=== PATIENT | male | born 2005 | race Caucasian/White ===

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

== ENCOUNTER 2023-12-16 00:15 | Emergency (ER) | payer OTHER, SELFPAY ==
[2023-12-16 00:24] VITALS: BP 134/83; PULSE 74; RESP 16; TEMP 37.4; O2SAT 98
[2023-12-16 00:29] VITALS: BP 134/83; O2SAT 97
--- NOTE | 2023-12-16 00:42 | XRR_ITS ---
PROCEDURE INFORMATION: Exam: XR Right Wrist Exam date and time: 12/16/2023 1:04 AM Age: 18 years old Clinical indication: Injury or trauma; Other: Lifting; Work related; Patient HX: Patient picked up a box at work and now has pain lateral carpal area; Additional info: Pain/edema TECHNIQUE: Imaging protocol: Radiologic exam of the right wrist. Views: 3 or more views. COMPARISON: No relevant prior studies available. FINDINGS: Bones/joints: No acute fracture or dislocation identified. Incidental 6 mm cyst within the scaphoid bone. Soft tissues: Normal. XR/XR wrist RT min 3V* [id number] IMPRESSION: 1. No acute fracture or dislocation identified. 2. Incidental 6 mm cyst within the scaphoid bone. Consider simple bone cyst versus intraosseous ganglion cyst.
[2023-12-16] MEDS: ibuprofen 800 mg tablet PO (01:02)
--- NOTE | 2023-12-16 01:28 | W.ED.EXTPRO ---
HPI - Extremity Problem General: Chief complaint: Extremity Problem,Nontraumatic Stated complaint: Rt Wrist Swollen and Pain Time Seen by Provider: 12/16/23 00:24 History of Present Illness: 18-year-old male presents emergency department complaints of right wrist pain after lifting a heavy box today. He states he did feel a pop in his wrist and states he has had pain and swelling since that time. He states he does have a previous wrist injury many years ago but has been doing well since that time. He states that his current pain is a 10 out of 10 and worse with movement. He denies numbness or tingling to the extremity at present but does state that when he initially injured his wrist after lifting a heavy box he felt like his fifth and fourth digit had some tingling and numbness.. Review of Systems General: Reports: 10 or more systems reviewed and unremarkable except in HPI and below Musc: Reports: extremity pain, extremity swelling and joint pain Physical Exam Narrative: EXAM NARRATIVE: Constitutional: the patient appears well nourished and of normal development. Vital signs as documented. No acute distress at present. Alert and oriented-to person, place, time and situation. Head, eyes, ears, nose, mouth, throat: Normocephalic, atraumatic. Pupils-equal, round, reactive to light. No scleral icterus. Normal-appearing external ears. Normal appearing nasal turbinates, no drainage. No obvious oral lesions, posterior oropharynx without erythema or exudates. Neck: Supple, trachea is midline, no lymphadenopathy, no jugular venous distension, thyromegaly, or carotid bruits. Carotid upstrokes are brisk bilaterally. Lungs: clear to auscultation to all lung gomez. Symmetrical rise and fall of chest, no obvious signs of increased work of breathing at present. Cardiac: Regular rate and rhythm, positive S1, S2. No murmurs, rubs or gallops that I can appreciate Abdomen: Soft, non-tender to palpation, normal active bowel sounds to all quadrants. No palpable masses, no organomegaly and abdominal bruits. Extremities: 2+ pulses in the upper extremities that are equal bilaterally, 2+ pulses in the lower extremities that are equal bilaterally. Mild swelling to the right wrist, he is tender to palpation to the right lateral aspect of the radius. He does have slight tenderness to the anatomical snuffbox on the right. Moves all extremities well, sensation to all extremities are noted. Skin: Warm, dry, intact. Course ED course: I reviewed the radiographic examination and determined the need for fracture stabilization via splint. A right Velcro wrist splint was utilized. The splint was ordered and placed by the nursing staff, under the direct supervision of myself (ER Physician. The patient's neurovascular status was evaluated and was intact before and after the application of the splint. Capillary refill was less than 3 seconds before and after the application. The patient was splinted and the most appropriate anatomical and functional position at that time. Anticipatory guidance, return precautions and red flag precautions were provided to the patient and support person. The patient/support person was advised to contact the patient's primary care provider or Orthopedic provider to make a follow-up appointment for additional evaluation and treatment within the next 3-5 days. Reevaluation(s): Reevaluation #1: Patient was provided p.o. ibuprofen and states improved control of his pain. I did advise him of the radiographic findings and concern for fracture of the distal radius and advised him to follow-up with his primary care or orthopedics for additional evaluation treatment and care. I advised him that we provided him a wrist splint and that he should wear the supportive device until evaluated by the specialty physician. Time: 01:31 Vital Signs: Vital signs: Vital Signs Temperature 99.3 F 12/16/23 00:24 Pulse Rate 74 12/16/23 00:24 Respiratory Rate 16 12/16/23 00:24 Blood Pressure 134/83 12/16/23 00:29 Pulse Oximetry 97 12/16/23 00:29 Oxygen Delivery Me thod Room Air 12/16/23 00:29 MDM - Extremity (Nontraumatic) Medical Decision Making Physical exam completed document I will obtain a x-ray of the right wrist and provide the patient with ibuprofen. After review of the x-ray I am concerned regarding a nondisplaced fracture of the right wrist as there does appear to be periosteal disruption on the lateral aspect. I did provide a wrist splint for the patient as well as written prescription for pain medication and recommended primary care/orthopedic physician follow-up. Medical Records I reviewed the patient's medical records. Lab Data I reviewed the patient's lab results. Radiology Impressions Wrist X-Ray 12/16/23 00:42 IMPRESSION: 1. No acute fracture or dislocation identified. 2. Incidental 6 mm cyst within the scaphoid bone. Consider simple bone cyst versus intraosseous ganglion cyst. All radiology interpretation(s) finalized by discharge Discharge Plan Discharge Patient Disposition: Home Clinical Impression: Acute pain of right wrist Fracture of right distal radius Qualifiers: Encounter type: initial encounter Fracture type: closed Fracture morphology: unspecified fracture morphology Qualified Code(s): S52.501A - Unspecified fracture of the lower end of right radius, initial encounter for closed fracture Condition: Stable Prescriptions: New hydrocodone-acetaminophen 5-325 mg tablet 1 tab PO Q8H PRN (Reason: pain) Qty: 6 0RF naproxen 500 mg tablet 500 mg PO Q12H PRN (Reason: pain) Qty: 20 0RF Discharge Orders: Discharge ED (Routine); Ordered 12/16/23 Ordered By: Bonilla Stephenson Discharge Diet: Usual diet Discharge Activity: Resume usual activity Patient Instructions: Opioid Safety, Pain Management Activity Restrictions/Additional Instructions: Activity Restrictions/Additional Instructions: Thank you for choosing [facility] for your healthcare needs today. Please realize that you were seen in the Emergency Department and that we are providing you with an emergency medical screening exam and this may not be a complete and all inclusive of all the testing and or medical work-up that you may need to determine your ailment or severity of your illness. It is very important that you follow-up as instructed with your Primary care provider or Specialist for additional evaluation and to discuss your medical treatment plan. Stand Alone Forms: Work/School Release Coding Level of Care Code ED Inspector [place] for Nabil Bhandari
== END 2023-12-16 01:52 | disposition home or self-care (01) ==
PROVIDERS: Emergency Provider Internal Medicine
DX: S52.501A Unspecified fracture of the lower end of right radius, initial encounter for closed fracture (principal); X50.0XXA Overexertion from strenuous movement or load, initial encounter
CPT/HCPCS: 73110; 99283

== ENCOUNTER 2023-12-21 16:02 | Outpatient (CLI) | payer OTHER, SELFPAY ==
--- NOTE | 2023-12-21 16:13 | XRR_ITS ---
PROCEDURE INFORMATION: Exam: XR Right Wrist Exam date and time: 12/21/2023 4:27 PM Age: 18 years old Clinical indication: Pain; Wrist; Right; Additional info: Pain in right wrist TECHNIQUE: Imaging protocol: Radiologic exam of the right wrist. Views: 3 or more views. COMPARISON: CR (UP EX, ) 12/16/2023 1:04 AM FINDINGS: Bones/joints: No evidence of fracture or subluxation. Radiocarpal articulation and carpal rows are grossly intact. Cyst noted within the scaphoid waist. There is mild sclerosis of the scaphoid waist. Consider correlation with snuffbox tenderness and MRI of the wrist as clinically warranted. Soft tissues: Grossly unremarkable. XR/XR wrist RT min 3V* [id number] IMPRESSION: 1. No evidence of acute fracture or subluxation. 2. Mild sclerosis of the scaphoid waist. Consider correlation with snuffbox tenderness and MRI of the wrist as clinically warranted.
== END 2023-12-21 16:03 | disposition home or self-care (01) ==
LOC: RAD 16:05
PROVIDERS: Visit Provider Family Medicine
DX: M25.531 Pain in right wrist (principal)
CPT/HCPCS: 73110

== ENCOUNTER 2023-12-23 14:17 | Outpatient (CLI) | payer OTHER, SELFPAY ==
--- NOTE | 2023-12-23 14:47 | MR_ITS ---
WS: [id number] MRI RIGHT WRIST WITHOUT CONTRAST. COMPARISON: Radiographs 12/16/2023 and 12/21/2023 Multiplanar, multisequence imaging is performed without contrast. Well-circumscribed 6.2 x 8.3 mm cyst within the proximal scaphoid. There is also surrounding edema in the proximal and distal scaphoid. No definite fracture is identified. The scapholunate interval is n ormal. There does appear to be slight narrowing of the radiocarpal joint space. No additional fractur es are identified. There is no fluid in the distal radial ulnar joint. The TFCC appears normal. IMPRESSION: 1. Well-circumscribed cyst in the scaphoid measuring 6.2 x 8.3 mm. There is additional surrounding e carline within a large portion of the scaphoid. This may be edema from a recent trauma or from repetitiv e use. No fracture is identified. Patient may be at risk for fracture due to the size of the cyst and marrow edema. Evaluation by ortho may be of benefit. 2. No TFCC tear.
== END 2023-12-23 14:18 | disposition home or self-care (01) ==
LOC: RAD 14:17
PROVIDERS: PCP Family Medicine; Visit Provider Family Medicine
DX: M25.531 Pain in right wrist (principal)
CPT/HCPCS: 73221

== ENCOUNTER → 2024-01-17 08:38 | Outpatient (BNVA) | payer OTHER, SELFPAY | PROVIDERS: PCP Family Medicine; Referring Provider Family Medicine; Visit Provider Specialist | DX: M85.641 Other cyst of bone, right hand | CPT/HCPCS: 73110 ==

== ENCOUNTER 2024-01-17 10:53 | Outpatient (CLI) | payer OTHER, SELFPAY | END 2024-01-17 10:54 | disposition home or self-care (01) | LOC: SPT 10:54 | PROVIDERS: PCP Family Medicine; Visit Provider Specialist | DX: Z46.89 Encounter for fitting and adjustment of other specified devices (principal); M25.531 Pain in right wrist | CPT/HCPCS: L3908 ==

== ENCOUNTER 2025-03-24 16:07 | Emergency (ER) | payer OTHER, SELFPAY ==
[2025-03-24 16:07] VITALS: BP 134/82; PULSE 89; RESP 18; TEMP 36.8; O2SAT 93
[2025-03-24 16:25] VITALS: O2SAT 98
--- OUTSIDE RECORDS SUMMARY | 2025-03-24 16:27 | XMS_ITS | Clinical Summary ---
Author Organization [facility] Address [address] [place] [address] Phone Care Team Providers Care Head Of Precision Targeting Name Role Phone Aldair Miller MD Primary Care Provider [phone] Allergies No known active allergies Medications dexmethylphenid ate (FOCALIN XR) 25 mg Extended Release capsule TAKE ONE CAPSULE BY MOUTH DAILY 1 Active omega-3 fatty acids-fish oil 300-1,000 mg Capsule Take by mouth daily. 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 6 Active albuterol sulfate HFA 90 mcg/actuation aerosol inhaler Take 2 Puffs by inhalation every 6 hours as needed for Shortness of Breath. 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 Gender Identity Not on file Sexual Orientation Not on file Last Filed Vital Signs Vital Sign Reading Time Taken Comments Blood Pressure 140/85 12/23/2020 10:50 AM CDT Pulse 66 12/23/2020 10:50 AM CDT Temperature 37.3 C (99.2 F) 10/01/2015 11:00 PM MACHINE SET UP TECHNICIAN Respiratory Rate 16 10/01/2015 11:51 PM MACHINE SET UP TECHNICIAN Oxygen Saturation - - Inhaled Oxygen Concentration - - Weight 60.8 kg (134 lb) 12/23/2020 10:50 AM CDT Height 170.2 cm (5' 7 ) 12/23/2020 10:50 AM CDT Body Mass Index 20.99 12/23/2020 10:50 AM CDT Plan of Treatment Health Maintenance Due Date Last Done Comments DTAP/TDAP/TD VACCINES (6 - Tdap) 2014 04/25/2009, 01/23/2005, 01/28/2004, Additional history exists HPV VACCINES (1 - Male 3-dos e series) 2018 INFLUENZA VACCINE (#1) 2024 HEPATITIS B VACCINES Completed 06/11/2004, 01/28/2004, 01/28/2004, Additional history exists Insurance Care Teams Head Of Precision Targeting Relationship Specialty Start Date End Date Aldair Miller MD [address] [place] [phone] PCP - General 12/23/20
--- OUTSIDE RECORDS SUMMARY | 2025-03-24 16:27 | XMS_ITS | Clinical Summary ---
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 Active albuterol HFA 90 mcg inhaler Take 2 Puffs by inhalation every 6 hours as needed for Shortness of Breath. Active dexmethylphenid ate (FOCALIN XR) 25 mg Extended Release capsule TAKE ONE CAPSULE BY MOUTH DAILY 1 Active methylphenidate HCl (RITALIN) 5 mg tablet TAKE ONE TABLET BY MOUTH AT LUNCH 1 Active omega-3 fatty acids-fish oil 300-1,000 mg Capsule Take by mouth daily. Active Active Problems No known active problems Social History Tobacco Use Types Packs/Day Years Used Date Smoking Tobacco: Never Assessed Sex and Gender Information Value Date Recorded Sex Assigned at Not on file Legal Sex Male 6:19 PM ENTRY LEVEL PARALEGAL Gender Identity Not on file Sexual Orientation Not on file Last Filed Vital Signs Vital Sign Reading Time Taken Comments Blood Pressure 140/85 12/23/2020 10:50 AM CDT Pulse 66 12/23/2020 10:50 AM CDT Temperature 37.3 C (99.2 F) 10/01/2015 11:00 PM ENTRY LEVEL PARALEGAL Respiratory Rate 16 10/01/2015 11:51 PM ENTRY LEVEL PARALEGAL Oxygen Saturation 99% 10/01/2015 11:51 PM ENTRY LEVEL PARALEGAL Inhaled Oxygen Concentration - - Weight 60.8 kg (134 lb) 12/23/2020 10:50 AM CDT Height 170.2 cm (5' 7 ) 12/23/2020 10:50 AM CDT Body Mass Index 20.99 12/23/2020 10:50 AM CDT Plan of Treatment Health Maintenance Due Date Last Done Comments HPV VACCINES (1 - Male 3-dose series) 2018 DTAP/TDAP/TD VACCINES (1 - Tdap) 2022 HEPATITIS B VACCINES (1 of 3 - 19+ 3-dose series) 06/28 INFLUENZA VACCINE (#1) [address] [place] [address] [place] [address] Care Teams Customer Manager Relationship Specialty Start Date End Date Aldair Miller MD [address] [place] [id number] PCP - General Pediatrics 10/01/15
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
[2025-03-24 17:13] VITALS: BP 119/89; PULSE 80; RESP 18; O2SAT 98
== END 2025-03-24 18:01 | disposition home or self-care (01) ==
PROVIDERS: Emergency Provider Physician Assistant; PCP Family Medicine
DX: T59.3X3A Toxic effect of lacrimogenic gas, assault, initial encounter (principal); X58.XXXA Exposure to other specified factors, initial encounter
CPT/HCPCS: 99283